=== PATIENT | male | born 1960 | race Caucasian/White ===

== ENCOUNTER 2024-08-01 12:03 | Emergency (ER) | payer OTHER, SELFPAY ==
[2024-08-01 12:04] VITALS: BP 119/87
--- NOTE | 2024-08-01 12:12 | ED.GENMED ---
History of Present Illness
General
Chief Complaint: DVT/Possible Blood Clot
Source: patient
Exam Limitations: none
Time Seen by Provider: 08/01/24 12:11
Nursing documentation reviewed up to this point in time: agreed with
History of Present Illness
History of Present Illness:
63-year-old male presenting to the emergency department today with concerns of slight swelling to the left foot over the past few weeks as well as a cough it has been lingering over the past few months. Denies any chest pain fevers nausea vomiting.
Does occasionally get some mild shortness of breath with significant increased exertion. No history of blood clots recent trauma surgery mobilization.
Past History
Past History
ED Past Medical History: Other (celiac)
ED Past Surgical History: Appendectomy
Social History
Tobacco: Non-smoker
Personal:
Living: with family
Employment: Employed
Review of Systems
Review of Systems
Allergies reviewed?: Yes
All Other Systems: ROS reviewed and negative except as documented in HPI and ROS
Phy Exam
Physical Exam
Physical Exam:
GENERAL: Alert , in no apparent distress
EYE: pupils equal and reactive
NECK: Supple, no significant adenopathy.
ENT: o/p clr, mmm.
CARDIAC: Regular rate and rhythm .
LUNGS: Very mild rales to the right lower lung field
ABDOMEN: Soft, without focal tenderness, no r/g, no cvat
NEUROLOGICAL: Alert and oriented, no focal neuro deficits
SKIN: Warm and dry, skin intact.
MUSCULOSKELETAL: +1 pitting edema to the left foot does not extend past the ankle. No redness or warmth good range of motion strength of the lower extremities bilaterally. No significant swelling to the right lower extremity. Edema, well
perfused.
PSYCH: Normal and appropriate interaction.
Course
Orders/Labs/Results
Orders:
Orders
08/01/24 12:11
Chest [CR Chest - 2 Views ] Urgent
Comment:
Reason For Exam: cough
Venous Doppler Lwr Ext Left [US Periph Venous LOWER Ext LT] Urgent
Comment:
Reason For Exam: leg foot swelling
08/01/24 13:40
BMP [Basic Metabolic Panel] Urgent
BNP [NT-proBNP] Urgent
CBC/With Diff [Complete Blood Count/With Diff] Urgent
08/01/24 13:42
Dexamethasone [Decadron] 10 mg PO NOW STA
Doxycycline [Vibramycin] 100 mg PO NOW STA
Abnormal Lab Results
08/01/24
13:40
WBC 12.7 H 10^3/uL
(4.8-10.8)
RBC 4.47 L 10^6/uL
(4.70-6.10)
Hgb 12.4 L g/dL
(13.0-18.0)
Hct 37.9 L %
(39.0-52.0)
MCHC 32.7 L g/dL
(33.0-37.0)
Plt Count 483 H 10^3/uL
(130-400)
Abs Immat Gran (auto) 0.1 H 10^3/uL
(0-0.05)
Absolute Neuts (auto) 9.6 H 10^3/uL
(1.4-6.5)
Absolute Monos (auto) 0.9 H 10^3/uL
(0.1-0.6)
Lymphocytes % 12.9 L %
(20.5-51.1)
Glucose 102 H mg/dl
(70-99)
08/01/24 13:40
08/01/24 13:40
Vital Signs
Initial and Last Documented VS:
Initial Vital Signs
Temp Pulse Resp BP Pulse Ox
98.8 F 108 20 119/87 96
08/01/24 12:04 08/01/24 12:04 08/01/24 12:04 08/01/24 12:04 08/01/24 12:04
Last Documented Vital Signs
Temp Pulse Resp BP Pulse Ox
98.8 F 99 20 117/72 96
08/01/24 12:04 08/01/24 14:00 08/01/24 12:04 08/01/24 14:00 08/01/24 12:04
MDM/Problems Addressed
MDM/Problems Addressed:
63-year-old male presenting to the emergency department today with concerns of ongoing cough as well as left. The cough has been somewhat chronic over the past 5 to 6 months and the foot swelling more recently over the past few weeks. Upon arrival
here mildly improving without specific treatment here. Labs were obtained without acute abnormalities other than a very slight white count. Ultrasound performed without evidence of blood clot. Chest x-ray showing an interstitial lung pattern
unclear etiology. Patient was started on antibiotic in case there is infectious cause. Advised for follow-up with pulmonary concerning chronic cough at this point. Return precautions given.
*Critical Care Note
Total Time (30-74mins, 75-104mins- exclusive of procedures): Not Applicable
ED Attending Note
-
Portions of this chart may have been created with voice recognition software.� Occasional wrong word or��sound alike� substitutions may have occurred due to the inherent limitations of voice recognition software.
Discharge Plan
Departure
Patient Disposition: Home (Routine Discharge)
Date of Disposition: 08/01/24
Time of Disposition: 14:22
Patient with high blood pressure during this ER visit?: No
Condition: Good
Covid-19: Not Applicable
Discharge Problem:
Edema of foot, Interstitial lung abnormality present on imaging study
Instructions: Swelling, Atypical Pneumonia (Mycoplasma and Viral) (DC)
Prescriptions:
New
doxycycline hyclate 100 mg capsule
100 mg PO BID 7 Days Qty: 14 0RF
No Action
moxifloxacin [Vigamox] 0.5 % drops
1 drp OPHTHALMIC QID Qty: 1 0RF
Referrals:
Leona Thorne DO [Active] - Follow up in 5-7 days
Renae Hernandez DO [Family Provider] -
Activity Restrictions/Additional Instructions:
You came to the emergency department today with concerns of swelling to your left foot and ongoing cough. You are found to have an interstitial pattern on x-ray that could represent an atypical infection. Please take doxycycline twice daily for
the next 7 days and follow-up closely with pulmonary. Return to the emergency department any worsening, new or concerning symptoms. Please additionally follow-up closely with your primary care doctor within 1 week for reassessment.
Interventions
Interventions:
*Risk Screen - Suicide Last Done: 08/01/24 12:06
*General Assessment Last Done: 08/01/24 12:06
*Neglect/Abuse Screening Last Done: 08/01/24 12:20
ED- Fall Risk Assessment Last Done: 08/01/24 12:18
*ED COVID-19 Vaccine History Last Done: 08/01/24 12:18
*Nursing Disposition Last Done: 08/01/24 14:32
ED-Skin Assessment Last Done: 08/01/24 12:18
ED-Peripheral Vascular Assessment Last Done: 08/01/24 12:19
ED- Pulmonary Assessment Last Done: 08/01/24 12:18
ED- Cardiac Assessment Last Done: 08/01/24 12:18
Discharge Date and Time
Discharge Date/Time: 08/01/24 14:34
Print Language: SLOVENIAN
[2024-08-01 12:15] VITALS: BMI 29.6
[2024-08-01] MEDS: VIBRAMYCIN 100 MG PO (13:48)
[2024-08-01] MEDS: DECADRON 10 MG PO (13:48)
[2024-08-01 13:57] LABS: % Basophils 0.5 % (0-2); % Eosinophils 4.1 % (0-6); % Immature Granulocytes 0.4 % (0-0.5); % Lymphocytes 12.9 % (20.5-51.1); % Monocytes 6.9 % (1.7-9.3); % Neutrophils 75.2 % (42.2-75.2); Absolute Basophils 0.1 10^3/uL (0-0.2); Absolute Eosinophils 0.5 10^3/uL (0-0.7); Absolute Immature Granulocytes 0.1 10^3/uL (0-0.05); Absolute Lymphocytes 1.6 10^3/uL (1.2-3.4); Absolute Monocytes 0.9 10^3/uL (0.1-0.6); Absolute Neutrophils 9.6 10^3/uL (1.4-6.5); Hematocrit 37.9 % (39.0-52.0); Hemoglobin 12.4 g/dL (13.0-18.0); Mean Corp Hgb Conc. 32.7 g/dL (33.0-37.0); Mean Corpuscular Hgb 27.7 pg (27.0-31.0); Mean Corpuscular Volume 84.8 fL (80.0-94.0); Mean Platelet Volume 8.6 fL (7.4-10.4); Nucleated Red Blood Cells % 0 % (-); Platelet Count 483 10^3/uL (130-400); Red Blood Cell Count 4.47 10^6/uL (4.70-6.10); Red Cell Dist. Width 12.7 % (11.5-14.5); White Blood Cell Count 12.7 10^3/uL (4.8-10.8)
[2024-08-01 14:00] VITALS: BP 117/72
[2024-08-01 14:06] LABS: Blood Urea Nitrogen 14 mg/dl (9-20); Calcium 8.8 mg/dl (8.4-10.2); Carbon Dioxide 28 mmol/L (22-30); Chloride 99 mmol/L (98-107); Estimated Creatinine Clearance 93 ml/min; Glucose 102 mg/dl (70-99); Potassium 4.7 mmol/L (3.5-5.1); Sodium 136 mmol/L (135-145); eGFR > 60.00
[2024-08-01 14:15] LABS: NT-proBNP 145 pg/ml
== END 2024-08-01 14:34 | disposition home or self-care (01) ==
LOC: EMR 12:03
PROVIDERS: Physician Assistant; EMERGENCY PHYSICIAN Emergency Medicine; FAMILY PHYSICIAN Family Medicine
DX: R60.0 Localized edema (principal); R91.8 Other nonspecific abnormal finding of lung field; Z90.49 Acquired absence of other specified parts of digestive tract
CPT/HCPCS: 99284; 71046; 80048; 83880; 85025; 93971

== ENCOUNTER 2024-08-08 13:38 | Emergency (ER) | payer OTHER, SELFPAY ==
[2024-08-08 13:42] VITALS: BP 118/71
--- NOTE | 2024-08-08 14:07 | ED.GENMED ---
History of Present Illness
<LEEROY De Paz Jr. Last Filed: 08/09/24 14:12>
General
Chief Complaint: Numbness
Source: patient
Exam Limitations: none
Time Seen by Provider: 08/08/24 13:52
Nursing documentation reviewed up to this point in time: agreed with
History of Present Illness
History of Present Illness:
63-year-old male presenting to the emergency department today with concerns of altered sensation and tingling to the left fourth and fifth fingers as well as to the left foot started yesterday denies additional concerns also feels generally weak and
tired but this has been ongoing over the past week or so. Denies any chest pain shortness of breath abdominal pain nausea vomiting any weakness. He claims that he is able to walk well. He was recently on doxycycline for potential pneumonia last
week as well as prednisone which she concluded a few days ago.
Past History
<Darren Dexter Jr., PA-C - Last Filed: 08/09/24 14:12>
Past History
ED Past Medical History: Other (celiac)
ED Past Surgical History: Appendectomy
Social History
Tobacco: Non-smoker
Personal:
Living: with family
Employment: Employed
Review of Systems
<LEEROY De Paz Jr. Last Filed: 08/09/24 14:12>
Review of Systems
Allergies reviewed?: Yes
All Other Systems: ROS reviewed and negative except as documented in HPI and ROS
Phy Exam
<LEEROY De Paz Jr. Last Filed: 08/09/24 14:12>
Physical Exam
Physical Exam:
GENERAL: Alert , in no apparent distress
EYE: pupils equal and reactive
NECK: Supple, no significant adenopathy.
ENT: o/p clr, mmm.
CARDIAC: Regular rate and rhythm .
LUNGS: Clear breath sounds bilaterally, no acute respiratory distress, no wheezes/rales/rhonchi
ABDOMEN: Soft, without focal tenderness, no r/g, no cvat
NEUROLOGICAL: Alert and oriented, patient claims to have slight decrease sensation to the left sided fifth finger and half of the fourth finger otherwise normal sensation to the remainder of the fingers. Additionally has decree sensation to the
left foot on the top of the foot otherwise normal on the bottom of the foot and the plantar surface does not extend past the ankle. Good range of motion and strength of all extremities skin intact.
MUSCULOSKELETAL: No edema, well perfused.
PSYCH: Normal and appropriate interaction.
Course
<Darren Dexter Jr., PA-C - Last Filed: 08/09/24 14:12>
Orders/Labs/Results
Orders:
Orders
08/08/24 14:05
EKG [Electrocardiogram (*1)] Urgent
Reason for Study: Fatigue / Weakness
EKG- Treatment ONCE
08/08/24 14:19
B12 [Vitamin B12] Urgent
CBC/With Diff [Complete Blood Count/With Diff] Urgent
CMP [Comprehensive Metabolic Panel] Urgent
TSH Reflex To Free T4 Urgent
08/08/24 15:19
CT Head W/o Iv Contrast Urgent
Comment:
Reason For Exam: lefthadn foot neuropathy
Abnormal Lab Results
08/08/24
14:19
WBC 14.0 H 10^3/uL
(4.8-10.8)
RBC 4.36 L 10^6/uL
(4.70-6.10)
Hgb 12.6 L g/dL
(13.0-18.0)
Hct 37.9 L %
(39.0-52.0)
Plt Count 450 H 10^3/uL
(130-400)
Abs Immat Gran (auto) 0.1 H 10^3/uL
(0-0.05)
Absolute Neuts (auto) 10.5 H 10^3/uL
(1.4-6.5)
Absolute Monos (auto) 0.7 H 10^3/uL
(0.1-0.6)
Absolute Eos (auto) 0.8 H 10^3/uL
(0-0.7)
Immature Gran % 0.6 H %
(0-0.5)
Lymphocytes % 13.0 L %
(20.5-51.1)
Glucose 113 H mg/dl
(70-99)
Total Protein 6.1 L g/dl
(6.3-8.2)
Albumin 2.8 L g/dl
(3.5-5.0)
08/08/24 14:19
08/08/24 14:19
Vital Signs
Initial and Last Documented VS:
Initial Vital Signs
Temp Pulse Resp BP Pulse Ox
98.4 F 51 18 118/71 98
08/08/24 13:42 08/08/24 13:42 08/08/24 13:42 08/08/24 13:42 08/08/24 13:42
Last Documented Vital Signs
Temp Pulse Resp BP Pulse Ox
98.9 F 92 20 113/64 96
08/08/24 17:26 08/08/24 17:26 08/08/24 17:26 08/08/24 17:26 08/08/24 17:26
Roslt;Albert Fuentes PA-C - Last Filed: 08/08/24 17:17>
Orders/Labs/Results
Orders:
Orders
08/08/24 14:05
EKG [Electrocardiogram (*1)] Urgent
Reason for Study: Fatigue / Weakness
EKG- Treatment ONCE
08/08/24 14:19
B12 [Vitamin B12] Urgent
CBC/With Diff [Complete Blood Count/With Diff] Urgent
CMP [Comprehensive Metabolic Panel] Urgent
TSH Reflex To Free T4 Urgent
08/08/24 15:19
CT Head W/o Iv Contrast Urgent
Comment:
Reason For Exam: lefthadn foot neuropathy
Abnormal Lab Results
08/08/24
14:19
WBC 14.0 H 10^3/uL
(4.8-10.8)
RBC 4.36 L 10^6/uL
(4.70-6.10)
Hgb 12.6 L g/dL
(13.0-18.0)
Hct 37.9 L %
(39.0-52.0)
Plt Count 450 H 10^3/uL
(130-400)
Abs Immat Gran (auto) 0.1 H 10^3/uL
(0-0.05)
Absolute Neuts (auto) 10.5 H 10^3/uL
(1.4-6.5)
Absolute Monos (auto) 0.7 H 10^3/uL
(0.1-0.6)
Absolute Eos (auto) 0.8 H 10^3/uL
(0-0.7)
Immature Gran % 0.6 H %
(0-0.5)
Lymphocytes % 13.0 L %
(20.5-51.1)
Glucose 113 H mg/dl
(70-99)
Total Protein 6.1 L g/dl
(6.3-8.2)
Albumin 2.8 L g/dl
(3.5-5.0)
08/08/24 14:19
08/08/24 14:19
Vital Signs
Initial and Last Documented VS:
Initial Vital Signs
Temp Pulse Resp BP Pulse Ox
98.4 F 51 18 118/71 98
08/08/24 13:42 08/08/24 13:42 08/08/24 13:42 08/08/24 13:42 08/08/24 13:42
Last Documented Vital Signs
Temp Pulse Resp BP Pulse Ox
98.9 F 92 20 113/64 96
08/08/24 17:26 08/08/24 17:26 08/08/24 17:26 08/08/24 17:26 08/08/24 17:26
<Darren Dexter Jr., PA-C - Last Filed: 08/09/24 14:12>
MDM/Problems Addressed
MDM/Problems Addressed:
63-year-old male presenting to the emergency decree sensation to the left fourth and fifth fingers as well as the top of the left foot. Started yesterday. Denies additional specific symptoms does have some vague weakness and fatigue. Upon arrival
vital signs are normal patient no distress. Symptoms seem to be consistent with a peripheral neuropathy and does not seem to be consistent with central process due to the distribution. The distribution of the left hand is consistent with the ulnar
nerve and the distribution on the left foot is specific to the superficial peroneal nerve. Labs were obtained showing a slightly high white count but otherwise labs unremarkable. He was on steroids recently which could be elevating this number.
In the beginning CT scan that did not show any emergent findings. Otherwise stable for discharge at this time for close outpatient follow-up with neurology. Return precautions given.
<Albert Fuentes PA-C - Last Filed: 08/08/24 17:17>
*Critical Care Note
Total Time (30-74mins, 75-104mins- exclusive of procedures): Not Applicable
<Albert Fuentes PA-C - Last Filed: 08/08/24 17:17>
Update Note
Update Note:
Received care of patient upon signout pending pending CT scan. CT was negative. Patient reassured will discharge with neurology follow-up
ED Attending Note
<Darren Dexter Jr., PA-C - Last Filed: 08/09/24 14:12>
-
Portions of this chart may have been created with voice recognition software.� Occasional wrong word or��sound alike� substitutions may have occurred due to the inherent limitations of voice recognition software.
Discharge Plan
Departure
Patient Disposition: Home (Routine Discharge)
Date of Disposition: 08/08/24
Time of Disposition: 17:17
Patient with high blood pressure during this ER visit?: No
Condition: Good
Covid-19: Not Applicable
Discharge Problem:
Paresthesia
Instructions: Peripheral Neuropathy (DC), Paresthesia (DC)
Prescriptions:
No Action
moxifloxacin [Vigamox] 0.5 % drops
1 drp OPHTHALMIC QID Qty: 1 0RF
doxycycline hyclate 100 mg capsule
100 mg PO BID 7 Days Qty: 14 0RF
prednisone 50 mg tablet
50 mg PO DAILY 4 Days Qty: 4 0RF
Referrals:
Td Escamilla MD [Active] - Follow up in 5-7 days
Lexx Morgan MD [Family Provider] -
Activity Restrictions/Additional Instructions:
You came to the emergency department today with concerns of paresthesia to your left hand and left foot. Here your reassuring assessment. Please follow closely with neurology. Return to the emergency department any worsening, new or concerning
symptoms.
Interventions
Interventions:
*Risk Screen - Suicide Last Done: 08/08/24 13:44
*General Assessment Last Done: 08/08/24 13:44
*Neglect/Abuse Screening Last Done: 08/08/24 13:44
ED- Fall Risk Assessment Last Done: 08/08/24 14:16
*ED COVID-19 Vaccine History Last Done: 08/08/24 14:16
*Nursing Disposition Last Done: 08/08/24 17:31
ED- Neurological Assessment Last Done: 08/08/24 14:16
Discharge Date and Time
Discharge Date/Time: 08/08/24 17:31
Print Language: FRENCH
[2024-08-08 14:25] LABS: % Basophils 0.5 % (0-2); % Eosinophils 5.8 % (0-6); % Immature Granulocytes 0.6 % (0-0.5); % Monocytes 5.2 % (1.7-9.3); % Neutrophils 74.9 % (42.2-75.2); Absolute Basophils 0.1 10^3/uL (0-0.2); Absolute Eosinophils 0.8 10^3/uL (0-0.7); Absolute Immature Granulocytes 0.1 10^3/uL (0-0.05); Absolute Lymphocytes 1.8 10^3/uL (1.2-3.4); Absolute Monocytes 0.7 10^3/uL (0.1-0.6); Absolute Neutrophils 10.5 10^3/uL (1.4-6.5); Hematocrit 37.9 % (39.0-52.0); Hemoglobin 12.6 g/dL (13.0-18.0); Mean Corp Hgb Conc. 33.2 g/dL (33.0-37.0); Mean Corpuscular Hgb 28.9 pg (27.0-31.0); Mean Corpuscular Volume 86.9 fL (80.0-94.0); Mean Platelet Volume 8.6 fL (7.4-10.4); Nucleated Red Blood Cells % 0 % (-); Platelet Count 450 10^3/uL (130-400); Red Blood Cell Count 4.36 10^6/uL (4.70-6.10); Red Cell Dist. Width 13.3 % (11.5-14.5)
[2024-08-08 15:01] LABS: ALT (SGPT) 18 U/L (0-50); AST (SGOT) 25 U/L (17-59); Albumin 2.8 g/dl (3.5-5.0); Alkaline Phosphatase 65 U/L (38-126); Blood Urea Nitrogen 14 mg/dl (9-20); Calcium 8.4 mg/dl (8.4-10.2); Carbon Dioxide 28 mmol/L (22-30); Chloride 100 mmol/L (98-107); Glucose 113 mg/dl (70-99); Potassium 4.3 mmol/L (3.5-5.1); Sodium 136 mmol/L (135-145); Total Bilirubin 0.3 mg/dl (0.2-1.3); Total Protein 6.1 g/dl (6.3-8.2); eGFR > 60.00
[2024-08-08 15:20] LABS: TSH Reflex To Free T4 1.33 uIU/ml (0.47-4.68)
[2024-08-08 15:39] LABS: Vitamin B12 720 pg/ml (239-931)
[2024-08-08 17:26] VITALS: BP 113/64
== END 2024-08-08 17:31 | disposition home or self-care (01) ==
LOC: EMR 13:38
PROVIDERS: Physician Assistant; EMERGENCY PHYSICIAN Emergency Medicine; FAMILY PHYSICIAN Family Medicine
DX: R20.2 Paresthesia of skin (principal); Z90.49 Acquired absence of other specified parts of digestive tract
CPT/HCPCS: 99284; 70450; 80053; 82607; 84443; 85025; 93005

== ENCOUNTER → 2024-08-17 10:33 | Outpatient (REF) | payer OTHER, SELFPAY | LOC: RAD 10:33 | PROVIDERS: ATTENDING PHYSICIAN Family Medicine | DX: R05.3 Chronic cough (principal); R63.4 Abnormal weight loss | CPT/HCPCS: 71046 ==

== ENCOUNTER → 2024-09-06 12:22 | Outpatient (REF) | payer OTHER, SELFPAY | LOC: RAD 12:22 | PROVIDERS: ATTENDING PHYSICIAN Physician Assistant; FAMILY PHYSICIAN Family Medicine | DX: R93.89 Abnormal findings on diagnostic imaging of other specified body structures (principal); J84.9 Interstitial pulmonary disease, unspecified | CPT/HCPCS: 71250 ==

== ENCOUNTER 2024-10-06 15:36 | Inpatient (IN) | payer OTHER, SELFPAY ==
[2024-10-06] VITALS (9 sets, daily range): BP systolic 112–124; BP diastolic 53–74; BMI 24.5
[2024-10-06 14:03] LABS: % Basophils 0.3 % (0-2); % Eosinophils 0.7 % (0-6); % Immature Granulocytes 0.3 % (0-0.5); % Lymphocytes 11.9 % (20.5-51.1); % Monocytes 3.8 % (1.7-9.3); Absolute Eosinophils 0.1 10^3/uL (0-0.7); Absolute Lymphocytes 1.2 10^3/uL (1.2-3.4); Absolute Monocytes 0.4 10^3/uL (0.1-0.6); Hematocrit 36.5 % (39.0-52.0); Mean Corp Hgb Conc. 32.9 g/dL (33.0-37.0); Mean Corpuscular Hgb 26.5 pg (27.0-31.0); Mean Corpuscular Volume 80.6 fL (80.0-94.0); Mean Platelet Volume 9.3 fL (7.4-10.4); Nucleated Red Blood Cells % 0 % (-); Platelet Count 243 10^3/uL (130-400); Red Blood Cell Count 4.53 10^6/uL (4.70-6.10); Red Cell Dist. Width 16.3 % (11.5-14.5); White Blood Cell Count 9.6 10^3/uL (4.8-10.8)
--- NOTE | 2024-10-06 14:11 | ED.GENMED ---
History of Present Illness
<KELVIN Ramirez - Last Filed: 10/06/24 19:12>
General
Chief Complaint: Breathing Problem
Source: patient
Exam Limitations: none
Time Seen by Provider: 10/06/24 13:47
Nursing documentation reviewed up to this point in time: agreed with
History of Present Illness
History of Present Illness:
Patient is a 64-year-old male who presents to the ER for evaluation. Patient was recently diagnosed with interstitial lung disease in the fall. He is scheduled to see [facility] next week. He was on prednisone and that was weaned off 6 days ago.
For the past 1 week patient has had a cough and has had progressive worsening shortness of breath. He reports he is more short of breath with walking and also lightheaded. This morning he felt very lightheaded and was short of breath with
exertion. His daughter who is a nurse took his pulse ox and it was in the 80s and then when he was exerting himself and went down to the high 70s. during my exam patient is on 2 L of nasal cannula oxygen and is 92% and feels better.
He denies any fever or chills. He has no cardiac history. He denies extremity swelling. He has no prior history of DVT PE.
Past History
<KELVIN Ramirez - Last Filed: 10/06/24 19:12>
Past History
ED Past Medical History: Other (celiac)
ED Past Surgical History: Appendectomy
Social History
Tobacco: Non-smoker
Personal:
Living: with family
Employment: Employed
Review of Systems
<KELVIN Ramirez - Last Filed: 10/06/24 19:12>
Review of Systems
Allergies reviewed?: Yes
All Other Systems: ROS reviewed and negative except as documented in HPI and ROS
Constitutional: Denies fever
EENT: Reports no symptoms
Respiratory: Reports cough and trouble breathing; Denies hemoptysis
Cardiac: Reports no symptoms
ABD/GI: Reports no symptoms
Musculoskeletal: Reports no symptoms
Skin: Reports no symptoms
Neurological: Reports no symptoms
Psychiatric: Reports no symptoms
Phy Exam
<KELVIN Ramirez - Last Filed: 10/06/24 19:12>
General Physical Exam
General Presentation: no apparent distress
General age: appears stated age
General Skin: warm and dry
General Habitus: normal
General Mental: alert
General Hydration: appears well hydrated
Cardiovascular Exam
Cardiovascular Exam: regular rate/rhythm, no murmur and normal peripheral pulses
Pulmonary Exam
Pulmonary Exam: other (Crackles throughout with increased crackling to the right base)
Neurological Exam
Neurological Exam: alert and oriented x3
Musculoskeletal Exam
Musculoskeletal Exam: full ROM
Skin Exam
Skin Exam: normal color
Psychiatric Exam
Psychiatric Exam: normal mood/affect and agitated
Scores
<KELVIN Ramirez - Last Filed: 10/06/24 19:12>
Heart Failure Risk
Heart Failure Risk Score: Not Applicable
Course
<KELVIN Ramirez - Last Filed: 10/06/24 19:12>
Orders/Labs/Results
Orders:
Orders
10/06/24 13:23
Electrocardiogram (*1) Urgent
Reason for Study: Other
Other Reason for Exam: Respiratory Distress
EKG- Treatment ONCE
CR Chest - 2 Views Urgent
Comment:
Reason For Exam: respiratory distress
10/06/24 13:37
Complete Blood Count/With Diff Urgent
Comprehensive Metabolic Panel Urgent
10/06/24 14:28
CefTRIAXone [Rocephin] 1,000 mg IV NOW STA
10/06/24 14:29
Azithromycin 500 mg/250 ml [Zithromax Infusion] 500 mg in 250 ml IV NOW
10/06/24 14:35
Dexamethasone Sod Phosphate [Decadron] 10 mg IV NOW STA
10/06/24 14:36
COVID-19 Antigen Urgent
Source: Nasal Swab
Influenza A+B Rapid Molecular Urgent
GITA Source: Nasal Swab
Specimen Description:
10/06/24 14:46
Admit/Transfer Patient As Directed
Co-Sign Provider:
Level of Care: Inpatient admission
Assign to:: Telemetry
Physician / Group: naya rowe
Diagnosis: acute hypoxic resp insuff 2/2 Pnuemonitis flare conc pna
Reason for Telemetry: Arrhythmia
Date to Stop Telemetry: 10/09/24
Time to Stop Telemetry: 11:00
Reason for Hospitalization: acute hypoxic resp insuff 2/2 Pnuemonitis flare conc pna
Expected length of stay greater than two midnights?: Yes
ELOS- Estimated Length of Stay in days: 4
I certify the patient meets the requirements for IP care: Yes
Code Status As Directed
Resuscitation Status: Full Code
10/06/24 14:55
PRN Pain Medication Management As Directed
May give lesser potent ordered pain med per pt: Yes
preference::
Protocol:: Medication orders for pain may be administered in a
manner that supports deferring to patient preference
when the pt is:
- Requesting an ordered lesser potent pain medication.
Least to most potent pain medications are defined
as: acetaminophen < NSAID < tramadol < opioids
(morphine, oxycodone, hydromorphone).
- Requesting a lesser dose of the same medication IF
ORDERED.
- Requesting a less intrusive route of administration
if both routes are prescribed by the provider (PO <
IV).
10/06/24 Dinner
Regular
At Your Request: Full Participation
Fluid Restriction: 1200 mL/day (40 oz)
Regular diet: Gluten Free
10/06/24 16:00
0.9% Sodium Chloride 500 ml [Nss] 500 ml IV 60 mls/hr
10/06/24 16:51
Procalcitonin Urgent
PCT Algorithmm Indication: Respiratory
10/09/24 11:00
DC Protocol for Telemetry ONCE
Abnormal Lab Results
10/06/24
13:37
RBC 4.53 L 10^6/uL
(4.70-6.10)
Hgb 12.0 L g/dL
(13.0-18.0)
Hct 36.5 L %
(39.0-52.0)
MCH 26.5 L pg
(27.0-31.0)
MCHC 32.9 L g/dL
(33.0-37.0)
RDW 16.3 H %
(11.5-14.5)
Absolute Neuts (auto) 8.0 H 10^3/uL
(1.4-6.5)
Neutrophils % 83.0 H %
(42.2-75.2)
Lymphocytes % 11.9 L %
(20.5-51.1)
Sodium 130 L mmol/L
(135-145)
Chloride 97 L mmol/L
(98-107)
Glucose 119 H mg/dl
(70-99)
Calcium 7.7 L mg/dl
(8.4-10.2)
Albumin 2.9 L g/dl
(3.5-5.0)
10/06/24 13:37
10/06/24 13:37
Vital Signs
Initial and Last Documented VS:
Initial Vital Signs
Temp Pulse Resp BP Pulse Ox
97.3 F 68 24 122/66 81
10/06/24 13:20 10/06/24 13:20 10/06/24 13:20 10/06/24 13:20 10/06/24 13:20
Last Documented Vital Signs
Temp Pulse Resp BP Pulse Ox
97.3 F 74 25 113/68 92
10/06/24 13:20 10/06/24 19:00 10/06/24 19:00 10/06/24 19:00 10/06/24 19:00
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
Dim[employer] Worker consulted with physician?: Yes
Name of Physician Consulted: Gigi
<Cali Yu MD - Last Filed: 10/06/24 14:36>
Orders/Labs/Results
Orders:
Orders
10/06/24 13:23
Electrocardiogram (*1) Urgent
Reason for Study: Other
Other Reason for Exam: Respiratory Distress
EKG- Treatment ONCE
CR Chest - 2 Views Urgent
Comment:
Reason For Exam: respiratory distress
10/06/24 13:37
Complete Blood Count/With Diff Urgent
Comprehensive Metabolic Panel Urgent
10/06/24 14:28
CefTRIAXone [Rocephin] 1,000 mg IV NOW STA
10/06/24 14:29
Azithromycin 500 mg/250 ml [Zithromax Infusion] 500 mg in 250 ml IV NOW
10/06/24 14:35
Dexamethasone Sod Phosphate [Decadron] 10 mg IV NOW STA
10/06/24 14:36
COVID-19 Antigen Urgent
Source: Nasal Swab
Influenza A+B Rapid Molecular Urgent
GITA Source: Nasal Swab
Specimen Description:
10/06/24 14:46
Admit/Transfer Patient As Directed
Co-Sign Provider:
Level of Care: Inpatient admission
Assign to:: Telemetry
Physician / Group: naya rowe
Diagnosis: acute hypoxic resp insuff 2/2 Pnuemonitis flare conc pna
Reason for Telemetry: Arrhythmia
Date to Stop Telemetry: 10/09/24
Time to Stop Telemetry: 11:00
Reason for Hospitalization: acute hypoxic resp insuff 2/2 Pnuemonitis flare conc pna
Expected length of stay greater than two midnights?: Yes
ELOS- Estimated Length of Stay in days: 4
I certify the patient meets the requirements for IP care: Yes
Code Status As Directed
Resuscitation Status: Full Code
10/06/24 14:55
PRN Pain Medication Management As Directed
May give lesser potent ordered pain med per pt: Yes
preference::
Protocol:: Medication orders for pain may be administered in a
manner that supports deferring to patient preference
when the pt is:
- Requesting an ordered lesser potent pain medication.
Least to most potent pain medications are defined
as: acetaminophen < NSAID < tramadol < opioids
(morphine, oxycodone, hydromorphone).
- Requesting a lesser dose of the same medication IF
ORDERED.
- Requesting a less intrusive route of administration
if both routes are prescribed by the provider (PO <
IV).
10/06/24 Dinner
Regular
At Your Request: Full Participation
Fluid Restriction: 1200 mL/day (40 oz)
Regular diet: Gluten Free
10/06/24 16:00
0.9% Sodium Chloride 500 ml [Nss] 500 ml IV 60 mls/hr
10/06/24 16:51
Procalcitonin Urgent
PCT Algorithmm Indication: Respiratory
10/09/24 11:00
DC Protocol for Telemetry ONCE
Abnormal Lab Results
10/06/24
13:37
RBC 4.53 L 10^6/uL
(4.70-6.10)
Hgb 12.0 L g/dL
(13.0-18.0)
Hct 36.5 L %
(39.0-52.0)
MCH 26.5 L pg
(27.0-31.0)
MCHC 32.9 L g/dL
(33.0-37.0)
RDW 16.3 H %
(11.5-14.5)
Absolute Neuts (auto) 8.0 H 10^3/uL
(1.4-6.5)
Neutrophils % 83.0 H %
(42.2-75.2)
Lymphocytes % 11.9 L %
(20.5-51.1)
Sodium 130 L mmol/L
(135-145)
Chloride 97 L mmol/L
(98-107)
Glucose 119 H mg/dl
(70-99)
Calcium 7.7 L mg/dl
(8.4-10.2)
Albumin 2.9 L g/dl
(3.5-5.0)
10/06/24 13:37
10/06/24 13:37
Vital Signs
Initial and Last Documented VS:
Initial Vital Signs
Temp Pulse Resp BP Pulse Ox
97.3 F 68 24 122/66 81
10/06/24 13:20 10/06/24 13:20 10/06/24 13:20 10/06/24 13:20 10/06/24 13:20
Last Documented Vital Signs
Temp Pulse Resp BP Pulse Ox
97.3 F 74 25 113/68 92
10/06/24 13:20 10/06/24 19:00 10/06/24 19:00 10/06/24 19:00 10/06/24 19:00
<KELVIN Ramirez - Last Filed: 10/06/24 19:12>
MDM/Problems Addressed
Differential Diagnosis Includes:
Not limited to worsening interstitial lung disease, pneumonia
MDM/Problems Addressed:
Patient is a 64-year-old male with interstitial lung disease presents for worsening shortness of breath cough for the past week. Shortness of breath was worse today patient was found to be hypoxic in the high 70s to 80s percent. Patient is stable
92-93% on 2 L nasal cannula feeling better. Patient has more crackling on the right base and with increasing cough will treat for pneumonia. Formal radiology report reads moderate chronic inflammatory interstitial pneumonitis however with recent
cough and increased findings on right lobe will admit and treat for pneumonia. Patient requires admission for hypoxia and shortness of breath/weakness.
Labs reviewed normal white count stable hemoglobin; sodium mildly low at 130 calcium mildly low at 7.7
Chronic conditions affecting care:
Recent diagnosis of interstitial lung disease
<KELVIN Ramirez - Last Filed: 10/06/24 19:12>
*Radiology
Radiology exam reviewed: radiology read reviewed
*Pulse Oximetry
Patient hypoxic: yes
*EKG
Interpretation: abnormal
Comparison EKG: no changes
Heart Rate: 100
Rate: normal
Rhythm: sinus
Ischemia: no ischemia
*Critical Care Note
Total Time (30-74mins, 75-104mins- exclusive of procedures): Not Applicable
ED Attending Note
<KELVIN Ramirez - Last Filed: 10/06/24 19:12>
-
Portions of this chart may have been created with voice recognition software.� Occasional wrong word or��sound alike� substitutions may have occurred due to the inherent limitations of voice recognition software.
<Cali Yu MD - Last Filed: 10/06/24 14:36>
ED Attending Note
Patient seen and examined by attending physician: Yes
I performed the substantive portion of visit, reviewed & personally made and approve the management plan that is documented in note by myself or JACOB.: Yes
ED Attending Note:
64-year-old male with some ongoing progressive shortness of breath issues since late summer. Appears to be pulmonary fibrosis by recent CT. Is seeing pulmonary. Is scheduled to see [facility] this week. Last for 5 days ago progressed relatively
rapidly. Some cough. Symptoms are moderate in nature. No hemoptysis
On exam patient is nontoxic O2 sat 9394 on nasal cannula. However mildly tachypneic at rest. Minimally breathless with speaking. Diffuse dry crackles mostly at the bottom two thirds of the lung. No wheezing.
X-ray shows a progression of a pneumonitis bilaterally. EKG is stable. Labs are stable. Will treat as an acute on chronic lung issue with possible secondary infection. Steroids antibiotics admit.
Discharge Plan
Departure
Patient Disposition: Admit
Date of Disposition: 10/06/24
Time of Disposition: 15:05
Admit to: Med/Surg
Admit to doctor: hospitalist
Presentation/result/management discussed w/ accepting MD/DO: Hospitalist
Patient with high blood pressure during this ER visit?: No
Condition: Fair
Covid-19: Not Applicable
Discharge Problem:
Acute dyspnea, Hypoxia, Pneumonia
Interventions
Interventions:
*Risk Screen - Suicide Last Done: 10/06/24 13:20
*General Assessment Last Done: 10/06/24 13:33
*Neglect/Abuse Screening Last Done: 10/06/24 13:20
*ED COVID-19 Vaccine History Last Done: 10/06/24 13:33
ED- Cardiac Assessment Last Done: 10/06/24 13:34
ED- Pulmonary Assessment Last Done: 10/06/24 13:34
[2024-10-06 14:15] LABS: ALT (SGPT) 18 U/L (0-50); AST (SGOT) 45 U/L (17-59); Albumin 2.9 g/dl (3.5-5.0); Alkaline Phosphatase 81 U/L (38-126); Blood Urea Nitrogen 9 mg/dl (9-20); Calcium 7.7 mg/dl (8.4-10.2); Carbon Dioxide 24 mmol/L (22-30); Chloride 97 mmol/L (98-107); Glucose 119 mg/dl (70-99); Potassium 3.9 mmol/L (3.5-5.1); Sodium 130 mmol/L (135-145); Total Bilirubin 0.4 mg/dl (0.2-1.3); Total Protein 6.5 g/dl (6.3-8.2); eGFR > 60.00
[2024-10-06] MEDS: ROCEPHIN 1000 MG IV (14:37)
[2024-10-06] MEDS: ZITHROMAX INFUSION 250 IV (14:40)
[2024-10-06] MEDS: DECADRON 10 MG IV (14:46)
--- NOTE | 2024-10-06 14:57 | HPS.HSE ---
Family Physician
-
Family Physician: Renae Hernandez
Chief Complaint
-
SoB, desaturation with exertion
History of Present Illness
HPI
64M non smoker recently dxed [place] Dz in the fall and have plan to f/u at [facility] seen at ER:
- Was on PO Prednisone and that was weaned off 6 days ago.
- For the past 1 week patient has had a cough and has had progressive worsening shortness of breath.
- reports he is more short of breath with walking and also lightheaded.
- daughter who is a nurse checked POx at rest is in 80s, with exertion down to the high 70s
- At ER 2L NC O2 92% and feels better.
ROS
denies any fever or chills.
denies extremity swelling.
no prior history of DVT PE.
Medical History
Past Medical History
Past Medical History: Reports Other (celiac dz )
Past Surgical History: Reports None
Social History
Tobacco: Non-smoker
Alcohol: None
Family History
Family History: Not pertinent
Allergies / Home Medications
Allergies reflects when Allergies were last updated in [facility].
Home Medications with original date entered in [facility]
Allergy/Medication List:
Allergies
Allergy/AdvReac Type Severity Reaction Status Date / Time
Penicillins Allergy Unknown Unknown Verified 10/06/24 13:20
Home Medications
moxifloxacin 0.5 % eye drops (Vigamox) 1 drp OPHTHALMIC QID ##1 05/09/10
doxycycline hyclate 100 mg capsule 100 mg PO BID 7 days #14 caps 08/01/24
prednisone 50 mg tablet 50 mg PO DAILY 4 days #4 tabs 08/01/24
Review of Systems
-
Constitutional: Reports No Symptoms
EENT: Reports No Symptoms
Respiratory: Reports See HPI
Cardiac: Reports No Symptoms
Abdomen/GI: Reports No Symptoms
: Reports No Symptoms
Musculoskeletal: Reports No Symptoms
Skin: Reports No Symptoms
Neurological: Reports No Symptoms
Endocrine: Reports No Symptoms
Hematologic/Lymphatic: Reports No Symptoms
Psych: Reports No Symptoms
Physical Exam
Vital Signs
Vital Signs
Temp Pulse Resp BP Pulse Ox
97.3 F 95 26 122/66 90
10/06/24 13:20 10/06/24 14:00 10/06/24 14:00 10/06/24 13:20 10/06/24 14:00
Physical Exam
General: No Apparent Distress
HEENT: NormoCephalic, Moist mucous membranes and Atraumatic
Respiratory: Crackles ( Crackles throughout with increased crackling to the right base)
Cardiac: S1/S2 and Regular Rhythm; No Murmur or Rub
GI: Soft, Non Tender, Non Distended and Normal Bowel Sounds; No Organomegaly
Rectal: Deferred by Provider
Musculoskeletal: No Clubbing, No Cyanosis and No Edema
Skin: No Rash
Neuro: Nonfocal/grossly intact
Laboratory Results
-
10/06/24 13:37
10/06/24 13:37
Laboratory Results
Total Bilirubin 0.4 mg/dl (0.2-1.3) 10/06/24 13:37
AST 45 U/L (17-59) 10/06/24 13:37
ALT 18 U/L (0-50) 10/06/24 13:37
Alkaline Phosphatase 81 U/L (38-126) 10/06/24 13:37
Data Reviewed
-
Diagnostic Radiology: Report Reviewed by me
Lab Data: Labs Reviewed by me
Impression/Plan
-
Reviewed VS: Afebrile, RR 20-30 POx 81 on RA. 90-95 0n NC 2l
Laboratory Tests
10/06/24 10/06/24
13:37 14:36
WBC 9.6
Hgb 12.0 L
Sodium 130 L
Chloride 97 L
Glucose 119 H
Calcium 7.7 L
Albumin 2.9 L
SARS-CoV-2 Antigen Pending
10/06/24 CXR
1. MODERATE CHRONIC INFLAMMATORY INTERSTITIAL PNEUMONITIS (probably usual interstitial pneumonitis - UIP) which appears to have mildly progressed over the past several months.
2. Mildly decreased bilateral lung volumes
EKG
SINUS RHYTHM WITH OCCASIONAL PREMATURE VENTRICULAR COMPLEXES
LEFT AXIS DEVIATION
ABNORMAL ECG
WHEN COMPARED WITH ECG OF 08-AUG-2024 14:12,
NO SIGNIFICANT CHANGE WAS FOUND
Pending C19 and Flu
ASSESSMENT & PLAN
Pending Rx reconciliation
Huertas and hypoxia with exertion and at rest requiring 2L NC O2 support
Associated with off steroids
XR suspicion for probably usual interstitial pneumonitis( UIP)
Recently Dxed interstitial lung Dz
- agree with IV Decadron 10mg at ER; will cont IV 4 mg q8h
- O2 support; goa is to keep POx. 93 %
- check PCT
- agree with empiric IV CFTZ and Z Max
- f/u Pending C19 and Flu
- Pul consulted
Hyponatremia ? dehydration ? SIADH due to Pneumonitis
Hypochloremic
- 500 cc IV NS then 1.2 L L fluid restriction
- f/u Na in AM
HX Celiac dz
- Gluten free diet
DVT Px: LMWH
Code: Full code
IP TLM
[2024-10-06 15:08] LABS: COVID-19 Antigen Negative (Negative)
[2024-10-06] MEDS: NSS 500 IV (17:07)
[2024-10-06 17:27] LABS: Procalcitonin < 0.05 ng/ml (0.0-0.25)
[2024-10-06] MEDS: DUONEB 3 ML INH (19:57)
[2024-10-06] MEDS: DUONEB INH (20:01)
[2024-10-06] MEDS: LOVENOX 40 MG SC (20:13)
[2024-10-06] MEDS: DECADRON 4 MG IV (22:31)
[2024-10-07] VITALS (8 sets, daily range): BP systolic 116–138; BP diastolic 64–78; PULSE 100–102; O2SAT 91–92; BMI 24.3
[2024-10-07] MEDS: DECADRON 4 MG IV ×3 (06:08→21:31)
[2024-10-07 07:13] LABS: % Basophils 0.2 % (0-2); % Immature Granulocytes 0.3 % (0-0.5); % Lymphocytes 17.7 % (20.5-51.1); % Monocytes 1.5 % (1.7-9.3); % Neutrophils 80.3 % (42.2-75.2); Absolute Monocytes 0.1 10^3/uL (0.1-0.6); Absolute Neutrophils 4.7 10^3/uL (1.4-6.5); Hematocrit 36.3 % (39.0-52.0); Hemoglobin 11.6 g/dL (13.0-18.0); Mean Corpuscular Hgb 26.2 pg (27.0-31.0); Mean Corpuscular Volume 82.1 fL (80.0-94.0); Mean Platelet Volume 9.1 fL (7.4-10.4); Nucleated Red Blood Cells % 0 % (-); Platelet Count 226 10^3/uL (130-400); Red Blood Cell Count 4.42 10^6/uL (4.70-6.10); Red Cell Dist. Width 16.4 % (11.5-14.5); White Blood Cell Count 5.8 10^3/uL (4.8-10.8)
[2024-10-07] MEDS: ZITHROMAX 500 MG PO (07:27)
[2024-10-07 07:55] LABS: Blood Urea Nitrogen 10 mg/dl (9-20); Calcium 7.8 mg/dl (8.4-10.2); Carbon Dioxide 25 mmol/L (22-30); Chloride 103 mmol/L (98-107); Estimated Creatinine Clearance > 125 ml/min; Glucose 147 mg/dl (70-99); Potassium 4.7 mmol/L (3.5-5.1); Sodium 135 mmol/L (135-145); eGFR > 60.00
[2024-10-07] MEDS: DUONEB 3 ML INH ×3 (07:59→15:55)
--- NOTE | 2024-10-07 08:22 | W.PN.HOSP.TC ---
Today's Communication/Plan
-
IV antibiotics. IV steroids. Pulmonary consult
Assessment / Plan
Assessment / Plan
Physical Exam
General: No Apparent Distress
HEENT: NormoCephalic, Moist mucous membranes and Atraumatic
Respiratory: Crackles ( Crackles throughout with increased crackling to the right base)
Cardiac: S1/S2 and Regular Rhythm; No Murmur or Rub
GI: Soft, Non Tender, Non Distended and Normal Bowel Sounds; No Organomegaly
Rectal: Deferred by Provider
Musculoskeletal: No Clubbing, No Cyanosis and No Edema
Skin: No Rash
Neuro: Nonfocal/grossly intact
A/P:
Acute hypoxic respiratory insufficiency:
Multifactorial including interstitial lung disease exacerbation, pneumonia, other.
Continue oxygen supplementation
Continue antibiotics
Continue steroid
Continue bronchodilator
PT OT eval
Pulmonary consult pending
Interstitial lung disease flare:
Continue IV dexamethasone 4 mg every 8 hours
Chest x-ray radiology reports UIP pattern...although I thought you see this on high-resolution CTs.
Pneumonia:
Continue IV Rocephin and azithromycin
Hyponatremia:
Improved from 130 up to 135 today
Continue fluid restriction
Continue to monitor
Celiac disease:
Continue gluten-free diet
DVT prophylaxis:
Lovenox SQ
CODE STATUS:
Full code
Anticipated Discharge: 24 - 48 hours
Subjective/Interval History
-
Date of Service: October 07, 2024
Patient feels somewhat better. Less shortness of breath and cough. Afebrile. On supplemental oxygen.
Objective Data
-
Labs:
Laboratory Results
10/07/24
06:51
WBC 5.8
Hgb 11.6 L
Hct 36.3 L
Plt Count 226
Sodium 135
Potassium 4.7
Chloride 103
Carbon Dioxide 25
BUN 10
Creatinine 0.6 L
Glucose 147 H
Calcium 7.8 L
Vital Signs:
Vital Signs
Temp Pulse Resp BP Pulse Ox
98.6 F 70 18 131/69 93
10/07/24 07:25 10/07/24 08:01 10/07/24 08:01 10/07/24 07:25 10/07/24 08:01
I&O
10/06/24 10/07/24 10/08/24
06:59 06:59 06:59
Intake Total 480 / 480
Balance 480 / 480
[2024-10-07] MEDS: STERILE WATER FOR INJECTION 10 ML IV (14:47)
[2024-10-07] MEDS: ROCEPHIN 1000 MG IV (14:47)
[2024-10-07] MEDS: FLUSH (NSS) 2 FLUSH IV (14:47)
--- NOTE | 2024-10-07 15:12 | CON.PUL ---
Consultation
Consultation Request
Date/Time Consultation Requested: 10/07/2024
Date/Time Consultation Performed: 10/07/2024
Requesting Provider:
Performing Provider: Dr. Aaron Guevara
Reason for Consultation: Acute hypoxemic respiratory failure
Medical History
-
History of Present Illness:
64-year-old man who was recently diagnosed with interstitial lung disease last fall plans to follow-up at [facility] recently weaned off prednisone about 6 days ago. Next for the past week reports cough, progressive worsening
shortness of breath. Reports also lightheadedness.
Pulse ox at home was 80% on room air. With exertion down to 70% at home.
In the emergency room required 2 L of supplemental oxygen.
Patient reports worsening cough, upper respiratory symptoms without fevers about a week ago.
He was prescribed prednisone by primary care about 3 weeks ago, he completed the course for his coughing last Tuesday. After that he started reporting worsening symptoms.
Denies nausea, vomiting, diarrhea, rash, arthritis, back pain.
Denies weight loss or hair loss.
Denies hematuria.
Denies sick contacts
Denies fevers or chills
Past Medical History
Past Medical History: Other (See assessment and plan)
Social History
Tobacco: Non-smoker
Alcohol: None
Personal:
Living: With Family
Family History
Family History: Reviewed & Not Pertinent
Allergies / Home Medications
Allergies
Allergy/AdvReac Type Severity Reaction Status Date / Time
gluten Allergy Unknown Verified 10/06/24 16:11
Home Medications
�Medication �Instructions �Recorded �Confirmed �Last Taken �Type
aqyskrx-zjmyuvqoajwpm-eaxzsmod 250 2 tab PO DAILYPRN PRN headache 10/06/24 10/06/24 10/06/24 History
mg-250 mg-65 mg tablet (Excedrin
Extra Strength)
fluticasone fur. 200 mcg-umeclid 1 inh inhalation R DAILY 10/06/24 10/06/24 Unknown History
62.5 mcg-vilant 25 mcg Lung/Breathing Issues
inhalat.powder (Trelegy Ellipta)
guaifenesin 100 mg/5 mL oral liquid 200 mg PO DAILYPRN PRN cough 10/06/24 10/06/24 10/06/24 History
multivitamin with minerals-folic 2 tab PO DAILY Supplement 10/06/24 10/06/24 Unknown History
acid 80 mcg chewable tablet
Review of Systems
-
History Source: Patient
All other systems: Negative unless noted
Vitals / Labs / Diagnostic Testing
Vital Signs
Temp Pulse Resp BP Pulse Ox
97.7 F 93 19 116/69 96
10/07/24 12:40 10/07/24 12:40 10/07/24 12:40 10/07/24 12:40 10/07/24 12:40
Lab Data
10/07/24 06:51
10/07/24 06:51
Microbiology
10/06/24 14:36 Nasal Swab Influenza Types A & B (HERIBERTO) - Final
Negative for Influenza A & B, NAAT
Negative results must be combined with clinical observations
and patient history.
Nucleic Acid Amplification test (NAAT)performed on the
[employer] NOW platform.
Diagnostic Testing:
Physical Exam
-
HEENT: Normocephalic
Cardiovascular: S1/S2
Respiratory: Rales and Non-Labored Respirations
GI: Soft and Non Distended
Neurology: Awake and Oriented
Skin: Warm
General: Comfortable
Assessment
-
64-year-old man with history of interstitial lung disease seen by Dr. Diop in the office on 09/04/2025. CAT scan on 09/06/2025 consistent with UIP pattern. He was tapered down from steroids a few days ago.
Acute hypoxemic respiratory failure
Interstitial lung disease
Chest x-ray 10/06/2024: Moderate chronic inflammatory interstitial pneumonitis mildly progressed in the last several months.
CT chest 09/06/2024: Increased interstitial markings, peripheral distribution throughout both lungs, lower lobe predominant, honeycombing noted. Mild to moderate in degree. No evidence for groundglass. No mediastinal lymph nodes.
Minimal bronchiectasis.
UIP pattern conditions present prior admission.
C-reactive protein elevated on 09/13/2024
Conditions present prior admission:
Interstitial lung disease seen for the first time in our office 09/04/2024
Former smoker-quit smoke [id number]-year history
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
Chronic cough snoring: Sleep apnea evaluation ongoing
Assessment and plan:
Recently diagnosed with interstitial lung disease: CAT scan on 09/06/2024 suggestive of UIP pattern. There is no groundglass opacity, no pleural effusions or mediastinal lymph nodes.
At this moment in his interstitial lung disease is undifferentiated, broad differential diagnosis including idiopathic interstitial pneumonia such as: IPF, fibrotic NSIP, other differential diagnosis includes hypersensitivity pneumonitis, connective
tissue disease associated ILD.
-
Patient was prescribed prednisone by his primary care doctor about 2 weeks ago, taper off last Tuesday. He started getting worse at that time. He does report some URI symptoms, phlegmy cough but denies any fevers or chills. Denies nausea or
vomiting. Denies swallowing problems.
He does report improvement on cough with Trelegy.
-
Workup was in progress from our office: Serology for autoimmune disease was sent but is pending.
Patient reports worsening shortness of breath. In reviewing [facility] records he was seen in the office on 09/04/2024 and there was no oxygen saturation. At that time also did not have worsening shortness of breath. Only shortness of breath with hills.
He does have a new oxygen requirement documented this admission. Currently on 2 L.
Chest x-ray appears worse compared to prior
-
I will obtain a CT of the chest to evaluate further lung parenchyma. If there is significant groundglass opacities likely this is an acute exacerbation.
-
Not unreasonable to treat for pneumonia as well, started with more phlegmy cough, upper respiratory symptoms about a week ago-this can be completed rule out but there is no fever, leukocytosis and procalcitonin is negative.
Obtain a sputum culture.
COVID-negative
Influenza negative
-
Patient was placed on IV corticosteroids, continue for now. He seems to have responded to this as symptoms worsen when he taper down his prednisone.
With recently increased CRP, inflammatory pneumonitis cannot be ruled out.
-
With increased CRP significantly recently autoimmune serology will be important to rule out connective tissue disease associated ILD.
So far creatinine normal, LFT normal, recent proBNP also normal.
-
Check urinalysis rule out proteinuria
Repeat proBNP
Echocardiogram may be needed to complete workup.
Patient does have history of exposure in the past as above.
-
Outpatient pulmonary follow-up with Dr. Leona Diop after discharge.
Patient states that he has already an appointment at [facility] for evaluation tomorrow, this will need to be rescheduled.
-
[2024-10-07 17:13] LABS: NT-proBNP 536 pg/ml
[2024-10-07] MEDS: LOVENOX 40 MG SC (17:13)
[2024-10-07 18:27] LABS: Urine Albumin Trace (Neg - Trace); Urine Bilirubin Negative (Negative); Urine Character Clear (Clear); Urine Color Yellow; Urine Glucose Negative (Negative); Urine Ketone Negative (Negative); Urine Leukocyte Negative (Negative); Urine Nitrite Negative (Negative); Urine Occult Blood Negative (Negative); Urine Urobilinogen Negative (Neg - 1+)
[2024-10-07] MEDS: VENTOLIN NEBULES 2.5 MG INH (19:40)
[2024-10-08 03:58] VITALS: BP 117/66
[2024-10-08 06:00] VITALS: BMI 24.0
[2024-10-08] MEDS: DECADRON 4 MG IV ×3 (06:18→21:36)
[2024-10-08 07:19] LABS: % Immature Granulocytes 0.4 % (0-0.5); % Lymphocytes 11.3 % (20.5-51.1); % Monocytes 4.4 % (1.7-9.3); % Neutrophils 83.9 % (42.2-75.2); Absolute Lymphocytes 0.9 10^3/uL (1.2-3.4); Absolute Monocytes 0.4 10^3/uL (0.1-0.6); Absolute Neutrophils 6.9 10^3/uL (1.4-6.5); Hematocrit 35.7 % (39.0-52.0); Hemoglobin 11.2 g/dL (13.0-18.0); Mean Corp Hgb Conc. 31.4 g/dL (33.0-37.0); Mean Corpuscular Hgb 25.9 pg (27.0-31.0); Mean Corpuscular Volume 82.4 fL (80.0-94.0); Mean Platelet Volume 9.1 fL (7.4-10.4); Nucleated Red Blood Cells % 0 % (-); Platelet Count 260 10^3/uL (130-400); Red Blood Cell Count 4.33 10^6/uL (4.70-6.10); Red Cell Dist. Width 16.4 % (11.5-14.5); White Blood Cell Count 8.2 10^3/uL (4.8-10.8)
[2024-10-08 07:43] VITALS: BP 127/67
[2024-10-08] MEDS: NON-FORMULARY ITEM 1 UNIT INH (07:57)
[2024-10-08] MEDS: VENTOLIN NEBULES 2.5 MG INH ×4 (07:58→19:57)
[2024-10-08 08:07] LABS: Blood Urea Nitrogen 13 mg/dl (9-20); Carbon Dioxide 27 mmol/L (22-30); Chloride 102 mmol/L (98-107); Estimated Creatinine Clearance 109 ml/min; Glucose 142 mg/dl (70-99); Potassium 4.5 mmol/L (3.5-5.1); Sodium 134 mmol/L (135-145); eGFR > 60.00
[2024-10-08] MEDS: ZITHROMAX 500 MG PO (08:56)
[2024-10-08 10:51] VITALS: BMI 24.0
[2024-10-08 11:00] VITALS: BP 126/71
--- NOTE | 2024-10-08 11:13 | W.PN.PUL.V3 ---
Today's Communication / Plan
-
Wean oxygen.
Increase activity.
Follow radiographically.
Steroids.
Azithromycin.
Assessment
-
64-year-old man with history of interstitial lung disease seen by Dr. Diop in the office on 09/04/2025. CAT scan on 09/06/2025 consistent with UIP pattern. He was tapered down from steroids a few days ago.
Acute hypoxemic respiratory failure
Interstitial lung disease
Chest x-ray 10/06/2024: Moderate chronic inflammatory interstitial pneumonitis mildly progressed in the last several months.
CT chest 09/06/2024: Increased interstitial markings, peripheral distribution throughout both lungs, lower lobe predominant, honeycombing noted. Mild to moderate in degree. No evidence for groundglass. No mediastinal lymph nodes.
Minimal bronchiectasis.
UIP pattern conditions present prior admission.
C-reactive protein elevated on 09/13/2024
Conditions present prior admission:
Interstitial lung disease seen for the first time in our office 09/04/2024
Former smoker-quit smoke [id number]-year history
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
Chronic cough snoring: Sleep apnea evaluation ongoing
Plan
Recently diagnosed with interstitial lung disease: CAT scan on 09/06/2024 suggestive of UIP pattern. There is no groundglass opacity, no pleural effusions or mediastinal lymph nodes.
At this moment in his interstitial lung disease is undifferentiated, broad differential diagnosis including idiopathic interstitial pneumonia such as: IPF, fibrotic NSIP, other differential diagnosis includes hypersensitivity pneumonitis, connective
tissue disease associated ILD.
Workup was in progress from our office: Serology for autoimmune disease was sent but is pending.
Patient reports worsening shortness of breath. In reviewing [facility] records he was seen in the office on 09/04/2024 and there was no oxygen saturation. At that time also did not have worsening shortness of breath. Only shortness of breath with hills.
He does have a new oxygen requirement documented this admission
Chest x-ray appears worse compared to prior
Respiratory status appears to be slowly improving.
Continue supplemental oxygen as needed, currently on 2 L-91% saturation
Eventually check rest and exercise oximetry.
Nebulizers-albuterol 4 times daily.
Trelogy 200 continues
Aspiration precautions.
Decadron 4 mg IV every 8 hours-slowly wean and changed to prednisone 60 mg soon
Check cultures.
Influenza negative.
Finite course of antibiotics
DVT prophylaxis.
Outpatient pulmonary follow-up with Dr. Leona Diop after discharge.
Patient states that he has already an appointment at [facility] for evaluation
Subjective Data
-
Date of Service:
Date of Service: October 08, 2024
Chief Complaint: Pulmonary Follow Up and Dyspnea Follow Up
Subjective:
Feels better, recovers faster after exertion, no chest pain, productive cough, or abdominal pain
Review of Systems
General: Other ( per HPI)
Objective Data
Data Reviewed
Vital Signs / I&O:
Vital Signs
Temp Pulse Resp BP Pulse Ox
98.1 F 81 16 127/67 93
10/08/24 07:43 10/08/24 08:01 10/08/24 08:01 10/08/24 07:43 10/08/24 08:58
Intake and Output
10/07/24 10/08/24 10/09/24
06:59 06:59 06:59
Intake Total 480 / 480 2220 / 2220
Balance 480 / 480 2220 / 2220
SaO2: 93
Nasal Cannula flow liters per minute: 2
Physical Exam
General: Respiratory Distress (n) and Comfortable
HEENT: Normocephalic, Anicteric and Moist Mucous Membranes
Cardiovascular: Regular Rhythm
Respiratory: Crackles (, right greater than left base), Rhonchi (n), Non-Labored Respirations, Accessory Resp Muscle Use and Stridor (n)
GI: Soft, Non Distended and Non Tender
Neurology: Awake, Alert and No Motor Deficits
Skin: Warm, Good Color, Cyanosis (n), Jaundice (n) and Rash (n)
Labs/Micro/Reports
Lab Data
10/08/24 06:48
10/08/24 06:48
Microbiology
10/06/24 14:36 Nasal Swab Influenza Types A & B (HERIBERTO) - Final
Negative for Influenza A & B, NAAT
Negative results must be combined with clinical observations
and patient history.
Nucleic Acid Amplification test (NAAT)performed on the
[employer] platform.
--- NOTE | 2024-10-08 13:38 | W.PN.HOSP.TC ---
Today's Communication/Plan
-
CT chest w iv contrast
maintain on abx/steroids
Assessment / Plan
Assessment / Plan
1. Acute hypoxic respiratory insufficiency
ILD flare up
-Patient has been diagnosed with suspected ILD in September 25
-Outpatient serology/immunological workup report is pending
-Chest x-ray reviewed from this admission
-Continue oxygen supplementation
-Currently on IV Decadron 4 mg every 8 and empiric antibiotics, continue
-CT chest w IV contrast ordered
2. Presumed community acquired Pneumonia:
-Continue IV Rocephin and azithromycin
3. Hyponatremia
-Improved
-Continue fluid restriction
-Continue to monitor
Celiac disease:
Continue gluten-free diet
DVT prophylaxis: Lovenox SQ
CODE STATUS: Full code
Anticipated Discharge: 24 - 48 hours
Subjective/Interval History
-
Date of Service: October 08, 2024
no issues overnight
on o2 through NC
Afebrile
Objective Data
-
Labs:
Laboratory Results
10/08/24
06:48
WBC 8.2
Hgb 11.2 L
Hct 35.7 L
Plt Count 260
Sodium 134 L
Potassium 4.5
Chloride 102
Carbon Dioxide 27
BUN 13
Creatinine 0.7
Glucose 142 H
Calcium 8.0 L
Vital Signs:
Vital Signs
Temp Pulse Resp BP Pulse Ox
98.0 F 96 17 126/71 91
10/08/24 11:00 10/08/24 11:22 10/08/24 11:22 10/08/24 11:00 10/08/24 11:22
I&O
10/07/24 10/08/24 10/09/24
06:59 06:59 06:59
Intake Total 480 / 480 2220 / 2220 480 / 480
Balance 480 / 480 2220 / 2220 480 / 480
Review of Systems
-
Respiratory: Reports No Symptoms
Cardiac: Reports No Symptoms
Abdomen/GI: Reports No Symptoms
Physical Exam
-
General: Comfortable
HEENT: Oxygen (2L NC)
Respiratory: Clear to Auscultation
Cardiac: Regular Rhythm and S1/S2; Negative Murmur or Rub
GI: Soft, Nontender and Nondistended
Musculoskeletal: No Edema
Neuro: Awake, Alert, Oriented, No Motor Deficits and Nonfocal/Grossly Intact
Psych: Calm
[2024-10-08 15:00] VITALS: BP 125/60
[2024-10-08] MEDS: ROCEPHIN 1000 MG IV (15:55)
[2024-10-08] MEDS: STERILE WATER FOR INJECTION 10 ML IV (15:55)
[2024-10-08] MEDS: LOVENOX 40 MG SC (18:40)
[2024-10-08 19:07] LABS: Hepatitis C Antibody Negative (Negative)
[2024-10-08 19:41] VITALS: BP 118/57
[2024-10-08 23:02] VITALS: BP 119/67
[2024-10-09] VITALS (7 sets, daily range): BP systolic 112–128; BP diastolic 58–74; PULSE 84; O2SAT 94; BMI 23.8
[2024-10-09] MEDS: DECADRON 4 MG IV ×2 (05:35→19:40)
[2024-10-09 07:10] LABS: % Immature Granulocytes 0.1 % (0-0.5); % Lymphocytes 11.4 % (20.5-51.1); % Monocytes 5.8 % (1.7-9.3); % Neutrophils 82.7 % (42.2-75.2); Absolute Lymphocytes 0.8 10^3/uL (1.2-3.4); Absolute Monocytes 0.4 10^3/uL (0.1-0.6); Absolute Neutrophils 5.9 10^3/uL (1.4-6.5); Hematocrit 35.2 % (39.0-52.0); Hemoglobin 11.2 g/dL (13.0-18.0); Mean Corp Hgb Conc. 31.8 g/dL (33.0-37.0); Mean Corpuscular Hgb 26.2 pg (27.0-31.0); Mean Corpuscular Volume 82.2 fL (80.0-94.0); Mean Platelet Volume 9.3 fL (7.4-10.4); Nucleated Red Blood Cells % 0 % (-); Platelet Count 273 10^3/uL (130-400); Red Blood Cell Count 4.28 10^6/uL (4.70-6.10); Red Cell Dist. Width 16.7 % (11.5-14.5); White Blood Cell Count 7.1 10^3/uL (4.8-10.8)
[2024-10-09] MEDS: NON-FORMULARY ITEM 1 UNIT INH (07:40)
[2024-10-09] MEDS: VENTOLIN NEBULES 2.5 MG INH ×4 (07:41→19:44)
[2024-10-09 07:56] LABS: Blood Urea Nitrogen 14 mg/dl (9-20); Carbon Dioxide 29 mmol/L (22-30); Chloride 101 mmol/L (98-107); Estimated Creatinine Clearance 109 ml/min; Glucose 126 mg/dl (70-99); Sodium 135 mmol/L (135-145); eGFR > 60.00
[2024-10-09] MEDS: ZITHROMAX 500 MG PO (08:02)
--- NOTE | 2024-10-09 10:38 | W.PN.PUL.V3 ---
Today's Communication / Plan
-
.
Decrease steroids.
Final course of antibiotics.
Check rest and exercise oximetry
Assessment
-
64-year-old man with history of interstitial lung disease seen by Dr. Diop in the office on 09/04/2025. CAT scan on 09/06/2025 consistent with UIP pattern. He was tapered down from steroids a few days ago.
Acute hypoxemic respiratory failure
Interstitial lung disease
Chest x-ray 10/06/2024: Moderate chronic inflammatory interstitial pneumonitis mildly progressed in the last several months.
CT chest 09/06/2024: Increased interstitial markings, peripheral distribution throughout both lungs, lower lobe predominant, honeycombing noted. Mild to moderate in degree. No evidence for groundglass. No mediastinal lymph nodes.
Minimal bronchiectasis.
UIP pattern conditions present prior admission.
C-reactive protein elevated on 09/13/2024
Conditions present prior admission:
Interstitial lung disease seen for the first time in our office 09/04/2024
Former smoker-quit smoke [id number]-year history
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
Chronic cough snoring: Sleep apnea evaluation ongoing
Plan
Recently diagnosed with interstitial lung disease: CAT scan on 09/06/2024 suggestive of UIP pattern. There is no groundglass opacity, no pleural effusions or mediastinal lymph nodes.
At this moment in his interstitial lung disease is undifferentiated, broad differential diagnosis including idiopathic interstitial pneumonia such as: IPF, fibrotic NSIP, other differential diagnosis includes hypersensitivity pneumonitis, connective
tissue disease associated ILD.
Workup was in progress from our office: Serology for autoimmune disease was sent but is pending.
Patient reports worsening shortness of breath. In reviewing [facility] records he was seen in the office on 09/04/2024 and there was no oxygen saturation. At that time also did not have worsening shortness of breath. Only shortness of breath with hills.
He does have a new oxygen requirement documented this admission
Chest x-ray appears worse compared to prior
Respiratory status appears to be slowly improving.
Continue supplemental oxygen as needed, currently on 2 L-91% saturation
Check ambulatory pulse oximetry
Nebulizers-albuterol 4 times daily.
Trelogy 200 continues
Aspiration precautions.
Decadron 4 mg IV every 8 hours--begin to wean-consider conversion to prednisone 60 mg in the next 24-48 hours
Check cultures.
Influenza negative.
Finite course of antibiotics
DVT prophylaxis..
Patient has tertiary opinion at [facility] 10/29/24
Outpatient pulmonary follow-up with Dr. Leona Diop after discharge.
Patient states that he has already an appointment at [facility] for evaluation
Subjective Data
-
Date of Service:
Date of Service: October 09, 2024
Chief Complaint: Pulmonary Follow Up and Dyspnea Follow Up
Subjective:
Feels better, less short of breath with exertion, recovers faster, no chest pain
Review of Systems
General: Other ( or HPI)
Objective Data
Data Reviewed
Vital Signs / I&O:
Vital Signs
Temp Pulse Resp BP Pulse Ox
98 F 79 16 128/73 96
10/09/24 07:57 10/09/24 07:57 10/09/24 07:57 10/09/24 07:57 10/09/24 08:05
Intake and Output
10/08/24 10/09/24 10/10/24
06:59 06:59 06:59
Intake Total 2219 480 / 480
Balance 2219 / 2219 480 / 480
SaO2: 96
Nasal Cannula flow liters per minute: 2
Physical Exam
General: Respiratory Distress (n) and Comfortable
HEENT: Normocephalic, Anicteric and Moist Mucous Membranes
Cardiovascular: Regular Rhythm
Respiratory: Crackles (, right greater than left base), Rhonchi (n), Non-Labored Respirations, Accessory Resp Muscle Use and Stridor (n)
GI: Soft, Non Distended and Non Tender
Neurology: Awake, Alert and No Motor Deficits
Skin: Warm, Good Color, Cyanosis (n), Jaundice (n) and Rash (n)
Labs/Micro/Reports
Lab Data
10/09/24 06:39
10/09/24 06:39
Microbiology
10/06/24 14:36 Nasal Swab Influenza Types A & B (HERIBERTO) - Final
Negative for Influenza A & B, NAAT
Negative results must be combined with clinical observations
and patient history.
Nucleic Acid Amplification test (NAAT)performed on the
[employer] NOW platform.
--- NOTE | 2024-10-09 11:24 | PN.CDI ---
CDI
- -
CDI:
Physician Documentation Request
Admit Date: 10/06/24 15:36
Dear Doctor Sina,
10/08 assessment and notes ' Chart reviewed due to consult pt with weight loss and decreased appetite....Pts weight previous admission listed as 188 lbs 07/05/24 and 178 lbs 09/13/24 reflective of a 21 lb (11%) weight loss in 3 months (significant).
With weight loss of > 10% in 6 months and < 75% estimated needs > 1 month pt meets AND/ASPEN criteria for moderate protein calorie malnutrition of chronic illness'
Based on the above information and your assessment, which of the following most accurately represents the patient's nutritional status?
Moderate Malnutrition
Other (please specify)
[place] Criteria (ACP Hospitalist 2017)
2 or more criteria must be present for either
non severe or severe malnutrition
Note that the criteria differs related to the
presence of an acute or chronic illness
Acute Illness Chronic Illness
Energy Intake Non Severe: <75% for >7 days Non Severe: <75% for >1 month
Severe: <50% for >5 days Severe: <75% for >1 month
Weight Loss Non Severe: 1-2% over 1 week Non Severe: 5% over 1 month
5% over 1 month 7.5% over 3 months
7.5% over 3 months 10% over 6 months
1 year N/A 20% over 1 year
Severe: >2% over 1 week Severe: >5% over 1 month
>5% over 1 month >7.5% over 3 months
>7.5% over 3 months >10% over 6 months
1 year N/A >20% over 1 year
Body Fat Non Severe: Mild Decrease Non Severe: Mild Loss
Severe: Moderate Decrease Severe: Severe Loss
Muscle Mass Non Severe: Mild Decrease Non Severe: Mild Loss
Severe: Moderate Decrease Severe: Severe Loss
Fluid Accumulation Non Severe: Mild Accumulation Non Severe: Mild Accumulation
Severe: Moderate to severe Severe: Moderate to severe
accumulation accumulation
Reduced [employer] Strength Non Severe: N/A Non Severe: N/A
Severe: Measurably reduced Severe: Measurably reduced
Use of terms such as suspected, likely, concern for, or probable (associated with a specific diagnosis that is being evaluated, monitored, or treated as if it exists) are acceptable and can be coded in the inpatient setting, when documented at the
time of discharge.
Thank you,
Genny Villegas RN, BSN
CDI Specialist
tiger text
Please use your independent medical judgment in providing your response.
--- NOTE | 2024-10-09 12:52 | W.PN.HOSP.TC ---
Today's Communication/Plan
-
Maintain on steroids/antibiotic
Wean off oxygen as possible
Assessment / Plan
Assessment / Plan
CT chest
1. SEVERE ACUTE on CHRONIC INFLAMMATORY INTERSTITIAL PNEUMONITIS throughout both lungs in a predominantly peripheral distribution with a mild amount of subpleural honeycombing most consistent with usual interstitial pneumonitis (UIP). Interval
increase in diffuse subpleural ground-glass opacity with several new regions of central ground-glass opacity consistent with active inflammation.
2. Mildly decreased bilateral lung volumes.
3. Mild mediastinal and bilateral hilar lymphadenopathy.
1. Acute hypoxic respiratory insufficiency
ILD flare up
-Patient has been diagnosed with suspected ILD in September 25
-Outpatient serology/immunological workup report is pending
-Chest x-ray reviewed from this admission
-Continue oxygen supplementation
-Currently on IV Decadron 4 mg every 8 and empiric antibiotics, continue
-CT chest with IV contrast report as above showing acute inflammatory interstitial pneumonitis on UIP pattern
-wean off o2 as possible.
2. Presumed community acquired Pneumonia:
-Continue IV Rocephin and azithromycin
3. Hyponatremia
-Improved
-Continue fluid restriction
-Continue to monitor
Celiac disease:
Continue gluten-free diet
DVT prophylaxis: Lovenox SQ
CODE STATUS: Full code
Anticipated Discharge: > 48 hours
Subjective/Interval History
-
Date of Service: October 09, 2024
no issues overnight
remains on o2 3L
Objective Data
-
Labs:
Laboratory Results
10/09/24
06:39
WBC 7.1
Hgb 11.2 L
Hct 35.2 L
Plt Count 273
Sodium 135
Potassium 5.0
Chloride 101
Carbon Dioxide 29
BUN 14
Creatinine 0.7
Glucose 126 H
Calcium 8.0 L
Vital Signs:
Vital Signs
Temp Pulse Resp BP Pulse Ox
98 F 88 16 123/62 92
10/09/24 10:59 10/09/24 11:45 10/09/24 11:45 10/09/24 10:59 10/09/24 11:45
I&O
10/08/24 10/09/24 10/10/24
06:59 06:59 06:59
Intake Total 2219 480 / 480
Balance 2219 480 / 480
Review of Systems
-
Respiratory: Reports No Symptoms
Cardiac: Reports No Symptoms
Abdomen/GI: Reports No Symptoms
Physical Exam
-
General: Comfortable
HEENT: Oxygen (2L NC)
Respiratory: Clear to Auscultation
Cardiac: Regular Rhythm and S1/S2; Negative Murmur or Rub
GI: Soft, Nontender and Nondistended
Musculoskeletal: No Edema
Neuro: Awake, Alert, Oriented, No Motor Deficits and Nonfocal/Grossly Intact
Psych: Calm
--- NOTE | 2024-10-09 12:59 | CM ---
Met with patient to obtain information for assessment. Patient stated that he lives in a two story [facility] with two steps to enter. He is independent with his ADLs, personal care, dressing and bathing. He can do his own colleter,
cook, clean and do laundry. He drives and can get to his appointments. 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
Patient denied any DME
He has never had VN services.
He has a prescription plan and uses [facility] on [facility] for all of her medications.
His PCP is, Renae Hernandez.
Patient is currently on o2. Will watch for o2 needs.
Plan: Case management will continue to follow and assist with discharge planning. Home, watch for o2 need.
[2024-10-09] MEDS: TYLENOL 650 MG PO (13:11)
[2024-10-09] MEDS: ROCEPHIN 1000 MG IV (16:06)
[2024-10-09] MEDS: STERILE WATER FOR INJECTION 10 ML IV (16:06)
[2024-10-09] MEDS: LOVENOX 40 MG SC (17:06)
[2024-10-10 03:39] VITALS: BP 110/66
[2024-10-10 06:37] VITALS: BMI 23.8
[2024-10-10 08:02] VITALS: BP 113/65
[2024-10-10] MEDS: VENTOLIN NEBULES 2.5 MG INH ×4 (08:06→19:22)
[2024-10-10] MEDS: NON-FORMULARY ITEM 1 UNIT INH (08:06)
[2024-10-10] MEDS: ZITHROMAX 500 MG PO (08:18)
[2024-10-10] MEDS: DECADRON 4 MG IV ×2 (08:22→19:35)
--- NOTE | 2024-10-10 09:48 | PN.CDI ---
CDI
- -
CDI:
Physician Documentation Request
Admit Date: 10/06/24 15:36
Dear Doctor Karin,
Pulmonary progress notes include a diagnosis of acute hypoxic respiratory failure.
Patient was on 2 L in ED and has remained on 2L.
Recognized standard criteria for respiratory failure includes:
(Source: ACP Hospitalist Aug 2013)
ABGs (1 or more)
�PO2 <60 or RA SpO2 <91%
�PcO2 >50 and pH <7.35
�pO2 decrease or pcO2 increase by 10 mmHg from baseline if known Symptoms:
�Tachypnea, SOB, dyspnea
�Pallor or cyanosis
�Anxiety or restlessness
�Use of accessory muscles
�Retractions (grunting in newborns)
�Unable to speak in complete sentences
Supplemental O2 requirement of 40% (5LPM) or more Intubation is not required
Based on the above information and the recognized standard for respiratory failure could you please verify this diagnoses is still accurate and reflective of the patient�s condition to ensure quality of the medical record.
Please clarify in the Progress Notes:
�Respiratory failure is/was present and is a clinical diagnosis based on (please include this additional support in the medical record)
�After study respiratory failure has been ruled out
�Other
Use of terms such as suspected, likely, concern for, or probable (associated with a specific diagnosis that is being evaluated, monitored, or treated as if it exists) are acceptable and can be coded in the inpatient setting, when documented at the
time of discharge.
Thank you,
Genny Villegas RN, BSN
CDI Specialist
tiger text
Please use your independent medical judgment in providing your response.
--- NOTE | 2024-10-10 10:09 | W.PN.PUL.V3 ---
Today's Communication / Plan
-
.
Wean oxygen
Check rest and exercise room air ambulatory pulse oximetry.
Change Decadron to prednisone 60 mg daily
Assessment
-
64-year-old man with history of interstitial lung disease seen by Dr. Diop in the office on 09/04/2025. CAT scan on 09/06/2025 consistent with UIP pattern. He was tapered down from steroids a few days ago.
Acute hypoxemic respiratory failure
Interstitial lung disease
Chest x-ray 10/06/2024: Moderate chronic inflammatory interstitial pneumonitis mildly progressed in the last several months.
CT chest 09/06/2024: Increased interstitial markings, peripheral distribution throughout both lungs, lower lobe predominant, honeycombing noted. Mild to moderate in degree. No evidence for groundglass. No mediastinal lymph nodes.
Minimal bronchiectasis.
UIP pattern conditions present prior admission.
C-reactive protein elevated on 09/13/2024
Conditions present prior admission:
Interstitial lung disease seen for the first time in our office 09/04/2024
Former smoker-quit smoke [id number]-year history
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
Chronic cough snoring: Sleep apnea evaluation ongoing
Plan
Recently diagnosed with interstitial lung disease: CAT scan on 09/06/2024 suggestive of UIP pattern. There is no groundglass opacity, no pleural effusions or mediastinal lymph nodes.
At this moment in his interstitial lung disease is undifferentiated, broad differential diagnosis including idiopathic interstitial pneumonia such as: IPF, fibrotic NSIP, other differential diagnosis includes hypersensitivity pneumonitis, connective
tissue disease associated ILD.
Workup was in progress from our office: Serology for autoimmune disease was sent but is pending.
Patient reports worsening shortness of breath. In reviewing [facility] records he was seen in the office on 09/04/2024 and there was no oxygen saturation. At that time also did not have worsening shortness of breath. Only shortness of breath with hills.
He does have a new oxygen requirement documented this admission
Chest x-ray appears worse compared to prior
Respiratory status appears to be slowly improving.
Continue supplemental oxygen as needed, currently on 2 L- 93% saturation
Check ambulatory pulse oximetry
Nebulizers-albuterol 4 times daily.
Trelogy 200 continues
Aspiration precautions.
Decadron 4 mg IV every 12 hours- conversion to prednisone 60 mg
Cultures reviewed
Unable to produce sputum
Influenza negative
Finite course of kbrsbwmcvwr-mnsgsioajsfn-wnseqv course
DVT prophylaxis-on Lovenox
Patient has tertiary opinion at [place] 10/29/24
Outpatient pulmonary follow-up with Dr. Leona Diop after discharge.
Patient states that he has already an appointment at [facility] for evaluation 10/29/24
Subjective Data
-
Date of Service:
Date of Service: October 10, 2024
Chief Complaint: Pulmonary Follow Up and Dyspnea Follow Up
Subjective:
Feels better, less short of breath, decreased oxygen requirements, no cough, chest pain, productive cough, or abdominal pain, recovers faster
Review of Systems
General: Other ( per HPI)
Objective Data
Data Reviewed
Vital Signs / I&O:
Vital Signs
Temp Pulse Resp BP Pulse Ox
98.1 F 83 16 113/65 93
10/10/24 08:02 10/10/24 08:07 10/10/24 08:07 10/10/24 08:02 10/10/24 08:07
Intake and Output
10/09/24 10/10/24 10/11/24
06:59 06:59 06:59
Intake Total 2069
Balance 2069
SaO2: 93
Nasal Cannula flow liters per minute: 2
Physical Exam
General: Respiratory Distress (n) and Comfortable
HEENT: Normocephalic, Anicteric and Moist Mucous Membranes
Cardiovascular: Regular Rhythm
Respiratory: Crackles (, right greater than left base), Rhonchi (n), Non-Labored Respirations, Accessory Resp Muscle Use and Stridor (n)
GI: Soft, Non Distended and Non Tender
Neurology: Awake, Alert and No Motor Deficits
Skin: Warm, Good Color, Cyanosis (n), Jaundice (n) and Rash (n)
Labs/Micro/Reports
Lab Data
10/09/24 06:39
10/09/24 06:39
[2024-10-10 11:52] VITALS: BP 112/56
[2024-10-10] MEDS: STERILE WATER FOR INJECTION 10 ML IV (13:51)
[2024-10-10] MEDS: ROCEPHIN 1000 MG IV (13:51)
--- NOTE | 2024-10-10 14:13 | W.PN.HOSP.TC ---
Addendum entered and electronically signed by Uriel Andino MD 10/11/24 07:50:
Add on to diagnosis list :
Moderate protein calorie malnutrition
Original Note:
Today's Communication/Plan
-
wean off o2
steroids changed to oral
finishing abx course
Assessment / Plan
Assessment / Plan
CT chest
1. SEVERE ACUTE on CHRONIC INFLAMMATORY INTERSTITIAL PNEUMONITIS throughout both lungs in a predominantly peripheral distribution with a mild amount of subpleural honeycombing most consistent with usual interstitial pneumonitis (UIP). Interval
increase in diffuse subpleural ground-glass opacity with several new regions of central ground-glass opacity consistent with active inflammation.
2. Mildly decreased bilateral lung volumes.
3. Mild mediastinal and bilateral hilar lymphadenopathy.
1. Acute hypoxic respiratory insufficiency
ILD flare up
-Patient has been diagnosed with suspected ILD in September 25
-Outpatient serology/immunological workup report is pending
-Chest x-ray reviewed from this admission
-Continue oxygen supplementation
-CT chest with IV contrast report as above showing acute inflammatory interstitial pneumonitis on UIP pattern
-home o2 testing
-IV decadron changed to prednisone 60mg/d
2. Presumed community acquired Pneumonia:
-Continue IV Rocephin and azithromycin - day 02/04 today
3. Hyponatremia
-Improved
-Continue fluid restriction
-Continue to monitor
Celiac disease:
Continue gluten-free diet
DVT prophylaxis: Lovenox SQ
CODE STATUS: Full code
Anticipated Discharge: Within 24 hours
Subjective/Interval History
-
Date of Service: October 10, 2024
o2 requirement down to 2L NC
subjectively feeling better
Objective Data
-
Vital Signs:
Vital Signs
Temp Pulse Resp BP Pulse Ox
98 F 88 16 112/56 95
10/10/24 11:52 10/10/24 11:56 10/10/24 11:56 10/10/24 11:52 10/10/24 13:57
I&O
10/09/24 10/10/24 10/11/24
06:59 06:59 06:59
Intake Total 2069
Balance 2069
Review of Systems
-
Respiratory: Reports No Symptoms
Cardiac: Reports No Symptoms
Abdomen/GI: Reports No Symptoms
Physical Exam
-
General: Comfortable
HEENT: Oxygen (2L NC)
Respiratory: Clear to Auscultation
Cardiac: Regular Rhythm and S1/S2; Negative Murmur or Rub
GI: Soft, Nontender and Nondistended
Musculoskeletal: No Edema
Neuro: Awake, Alert, Oriented, No Motor Deficits and Nonfocal/Grossly Intact
Psych: Calm
[2024-10-10] MEDS: TYLENOL 650 MG PO (14:44)
[2024-10-10 16:17] VITALS: BP 120/60
[2024-10-10] MEDS: LOVENOX 40 MG SC (17:44)
[2024-10-10 23:15] VITALS: BP 127/68
[2024-10-11 06:00] VITALS: BMI 23.3
[2024-10-11 07:10] VITALS: BP 118/65
[2024-10-11] MEDS: NON-FORMULARY ITEM 1 UNIT INH (07:49)
[2024-10-11] MEDS: VENTOLIN NEBULES 2.5 MG INH ×2 (07:49→11:41)
[2024-10-11] MEDS: DELTASONE 60 MG PO (08:33)
[2024-10-11] MEDS: ZITHROMAX 500 MG PO (08:33)
[2024-10-11 12:12] VITALS: BP 123/69; PULSE 85; O2SAT 96
--- NOTE | 2024-10-11 13:23 | W.PN.HOSP.TC ---
Today's Communication/Plan
-
d/c home
Assessment / Plan
Assessment / Plan
CT chest
1. SEVERE ACUTE on CHRONIC INFLAMMATORY INTERSTITIAL PNEUMONITIS throughout both lungs in a predominantly peripheral distribution with a mild amount of subpleural honeycombing most consistent with usual interstitial pneumonitis (UIP). Interval
increase in diffuse subpleural ground-glass opacity with several new regions of central ground-glass opacity consistent with active inflammation.
2. Mildly decreased bilateral lung volumes.
3. Mild mediastinal and bilateral hilar lymphadenopathy.
1. Acute hypoxic respiratory insufficiency -resolved
ILD flare up
-Patient has been diagnosed with suspected ILD in September 25
-Outpatient serology/immunological workup report is pending
-Chest x-ray reviewed from this admission
-Continue oxygen supplementation
-CT chest with IV contrast report as above showing acute inflammatory interstitial pneumonitis on UIP pattern
-Patient cleared home oxygen evaluation today
-Pulmonology recommended patient to have a slow taper of prednisone 60 mg daily 10 days followed by 50 mg 10 days and so on
2. Presumed community acquired Pneumonia:
-Continue IV Rocephin and azithromycin - providing 2 more days for ~ 7 days of abx.
3. Hyponatremia
-Improved
-Continue fluid restriction
-Continue to monitor
Celiac disease:
Continue gluten-free diet
DVT prophylaxis: Lovenox SQ
CODE STATUS: Full code
More than 30 minutes spent in discharge including
Final examination of the patient
Summarizing hospital stay
Instructions for continuing care to all relevant caregivers
Preparation of discharge records, prescriptions, and referral forms
Total time spent (in minutes): 38 mins
Anticipated Discharge: Today
Subjective/Interval History
-
Date of Service: October 11, 2024
Patient has been taken off of oxygen
No fever episode
Denies any significant productive cough
Objective Data
-
Vital Signs:
Vital Signs
Temp Pulse Resp BP Pulse Ox
97.8 F 90 16 118/65 93
10/11/24 07:10 10/11/24 11:43 10/11/24 11:43 10/11/24 07:10 10/11/24 08:50
I&O
10/10/24 10/11/24 10/12/24
06:59 06:59 06:59
Intake Total 1680 / 1680 1200 / 1200
Balance 1680 / 1680 1200 / 1200
Review of Systems
-
Respiratory: Reports No Symptoms
Cardiac: Reports No Symptoms
Abdomen/GI: Reports No Symptoms
Physical Exam
-
General: Comfortable
HEENT: Oxygen (2L NC)
Respiratory: Clear to Auscultation
Cardiac: Regular Rhythm and S1/S2; Negative Murmur or Rub
GI: Soft, Nontender and Nondistended
Musculoskeletal: No Edema
Neuro: Awake, Alert, Oriented, No Motor Deficits and Nonfocal/Grossly Intact
Psych: Calm
--- NOTE | 2024-10-11 14:29 | W.PN.PUL.V3 ---
Today's Communication / Plan
-
.
Does not require supplemental option at the time of discharge.
Prednisone taper.
Continue inhalers.
Outpatient pulmonary follow-up
Pulmonary will sign off-. Please call with questions
Assessment
-
64-year-old man with history of interstitial lung disease seen by Dr. Diop in the office on 09/04/2025. CAT scan on 09/06/2025 consistent with UIP pattern. He was tapered down from steroids a few days ago.
Acute hypoxemic respiratory failure
Interstitial lung disease
Chest x-ray 10/06/2024: Moderate chronic inflammatory interstitial pneumonitis mildly progressed in the last several months.
CT chest 09/06/2024: Increased interstitial markings, peripheral distribution throughout both lungs, lower lobe predominant, honeycombing noted. Mild to moderate in degree. No evidence for groundglass. No mediastinal lymph nodes.
Minimal bronchiectasis.
UIP pattern conditions present prior admission.
C-reactive protein elevated on 09/13/2024
Conditions present prior admission:
Interstitial lung disease seen for the first time in our office 09/04/2024
Former smoker-quit smoke [id number]-year history
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
Chronic cough snoring: Sleep apnea evaluation ongoing
Plan
Recently diagnosed with interstitial lung disease: CAT scan on 09/06/2024 suggestive of UIP pattern. There is no groundglass opacity, no pleural effusions or mediastinal lymph nodes.
At this moment in his interstitial lung disease is undifferentiated, broad differential diagnosis including idiopathic interstitial pneumonia such as: IPF, fibrotic NSIP, other differential diagnosis includes hypersensitivity pneumonitis, connective
tissue disease associated ILD.
Workup was in progress from our office: Serology for autoimmune disease was sent but is pending.
Patient reports worsening shortness of breath. In reviewing [facility] records he was seen in the office on 09/04/2024 and there was no oxygen saturation. At that time also did not have worsening shortness of breath. Only shortness of breath with hills.
He does have a new oxygen requirement documented this admission
Chest x-ray appears worse compared to prior
Respiratory status appears to be slowly improving.
Continue supplemental oxygen as needed, currently on 2 L- 93% saturation.
Ambulatory pulse oximetry 10/11/24-. Room air rest 95%, room air ambulatory 200 feet 93%-does not qualify for home oxygen
Nebulizers-albuterol 4 times daily.
Trelogy 200 continues
Aspiration precautions.
Decadron converted to prednisone 60 mg daily for 5 days and then 50 mg daily for 5 days and then 40 mg daily for 5 days and then 30 mg daily for 5 days and then 20 mg until seen by pulmonary
Cultures reviewed
Unable to produce sputum
Influenza negative
Finite course of iceexiiuqov-csghyluddfia-aleyiv course
DVT prophylaxis-on Lovenox.
Respiratory status has improved significantly-pulmonary will sign off-. Please call with questions
Patient has tertiary opinion at [place] 10/29/24
Outpatient pulmonary follow-up with Dr. Leona Diop after discharge.
Patient states that he has already an appointment at [facility] for evaluation 10/29/24
Subjective Data
-
Date of Service:
Date of Service: October 11, 2024
Chief Complaint: Pulmonary Follow Up and Dyspnea Follow Up
Subjective:
Feels improved, less short of breath, less dyspnea exertion, recovers faster, no chest pain or abdominal pain
Review of Systems
General: Other ( per HPI)
Objective Data
Data Reviewed
Vital Signs / I&O:
Vital Signs
Temp Pulse Resp BP Pulse Ox
97.8 F 90 16 118/65 93
10/11/24 07:10 10/11/24 11:43 10/11/24 11:43 10/11/24 07:10 10/11/24 08:50
Intake and Output
10/10/24 10/11/24 10/12/24
06:59 06:59 06:59
Intake Total 1680 / 1679 1200 / 1200
Balance 0 / 168 1200 / 1200
SaO2: 93
Nasal Cannula flow liters per minute: 2
Physical Exam
General: Respiratory Distress (n) and Comfortable
HEENT: Normocephalic, Anicteric and Moist Mucous Membranes
Cardiovascular: Regular Rhythm
Respiratory: Crackles (, right greater than left base), Rhonchi (n), Non-Labored Respirations, Accessory Resp Muscle Use and Stridor (n)
GI: Soft, Non Distended and Non Tender
Neurology: Awake, Alert and No Motor Deficits
Skin: Warm, Good Color, Cyanosis (n), Jaundice (n) and Rash (n)
Labs/Micro/Reports
Lab Data
10/09/24 06:39
10/09/24 06:39
[2024-10-11 15:09] VITALS: BP 125/66
[2024-10-11] MEDS: VENTOLIN NEBULES INH (15:16)
--- NOTE | 2024-10-11 17:15 | W.DCSUMMARY ---
Discharge Summary
Discharge Data
Date of Admission: 10/06/24
Date of Discharge: 10/11/24
-
Pending Results: No
Hospital Course
Discharging Physician : Dr Uriel Andino
Disposition : To home
Primary care physician : Dr Renae Hernandez
Principal Discharge diagnosis :
Interstitial lung disease flareup
Acute hypoxic respiratory insufficiency
Hyponatremia
Chronic Discharge diagnosis :
History of celiac disease
Hospital Course :
Patient is a 64-year-old male with admission past medical history came to ER with new onset of shortness of breath and dry cough. Patient was noted to be hypoxic and ER requiring oxygen support. A chest x-ray was done in ER which showed
infiltrates. 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 Patient was suspected to having interstitial lung disease flareup and was started on IV
steroids. A CT chest with IV contrast confirmed finding of inflammatory changes with UIP pattern. Patient was started on empiric antibiotics as well. Over next 3 days patient had improvement in symptoms and patient was able to be weaned off of
oxygen. At discharge pulmonology recommended patient to undergo slow taper of steroid. Patient is following up with [place] pulmonology in 3 weeks.
Important imaging findings :
CT chest w IV contrast
1. SEVERE ACUTE on CHRONIC INFLAMMATORY INTERSTITIAL PNEUMONITIS throughout both lungs in a predominantly peripheral distribution with a mild amount of subpleural honeycombing most consistent with usual interstitial pneumonitis (UIP). Interval
increase in diffuse subpleural ground-glass opacity with several new regions of central ground-glass opacity consistent with active inflammation.
2. Mildly decreased bilateral lung volumes.
3. Mild mediastinal and bilateral hilar lymphadenopathy.
Procedure findings :
None
Discharge Plan
-
Patient Disposition: Home (Routine Discharge)
Discharge Diagnosis/Procedures: ILD flare up
Condition: Fair
Diet: Regular
Activity: As tolerated
Driving Restrictions: As prior to admission
Bathing Restrictions: OK to Shower
Referrals:
Renae Hernandez DO [Family Provider] - in one week
Prescriptions:
New
prednisone 10 mg Tablet
See Rx Instructions .ROUTE .COMPLEX Qty: 210 0RF
Rx Instructions:
60 mg daily x10 days, 50 mg daily x10 days,
40 mg daily x10 days, 30 mg daily x10 days,
20 mg daily x10 days, 10 mg daily x10 days
cefdinir 300 mg capsule
300 mg PO BID Qty: 4 0RF
azithromycin 250 mg tablet
250 mg PO DAILY Qty: 2 0RF
Continued
guaifenesin 100 mg/5 mL Liquid
200 mg PO DAILYPRN PRN (Reason: cough)
Excedrin Extra Strength 250-250-65 mg Tablet
2 tab PO DAILYPRN PRN (Reason: headache)
multivit with min-folic acid 80 mcg Tablet,Chewable
2 tab PO DAILY
Trelegy Ellipta 200-62.5-25 mcg Blister With Device
1 inh INHALATION R DAILY
Discharge Orders:
Discharge Patient (As Directed); Ordered 10/11/24
Ordered By: Uriel Andino
Discharge Date and Time
Discharge Date/Time: 10/11/24 15:46
Print Language: THAI
== END 2024-10-11 15:46 | disposition home or self-care (01) | DRG 196 ==
LOC: 3 WEST ACU 15:36
PROVIDERS: Clinical Nurse Specialist Family Health; Emergency Medicine; Nurse Practitioner; ADMITTING PHYSICIAN Internal Medicine; ATTENDING PHYSICIAN Hospitalist; CONSULT PHYSICIAN Internal Medicine Critical Care Medicine; EMERGENCY PHYSICIAN Emergency Medicine; FAMILY PHYSICIAN Family Medicine
DX: J84.89 Other specified interstitial pulmonary diseases (principal); J18.9 Pneumonia, unspecified organism; E44.0 Moderate protein-calorie malnutrition; E87.1 Hypo-osmolality and hyponatremia; J84.112 Idiopathic pulmonary fibrosis; Z11.52 Encounter for screening for COVID-19; Z87.891 Personal history of nicotine dependence; Z68.23 Body mass index [BMI] 23.0-23.9, adult; R06.89 Other abnormalities of breathing; R09.02 Hypoxemia
CPT/HCPCS: 71046; 71260; 80048; 80053; 81003; 83880; 84145; 85025; 86803; 87502; 87811; 93005; 94640; 96361; 96365; 96375; 97116; 97162; 97166; 97530; 97535; 99285; Q9967